=== PATIENT | female | born 1940 | race Hispanic/Latino ===

== ENCOUNTER → 2020-03-17 | Outpatient (CLI) | payer BC | LOC: CARD 07:23 | PROVIDERS: ATTEND Emergency Medicine | DX: Z12.31 Encounter for screening mammogram for malignant neoplasm of breast (principal); I83.93 Asymptomatic varicose veins of bilateral lower extremities | CPT/HCPCS: 77067; 93925 ==

== ENCOUNTER → 2025-02-03 | Outpatient (REF) | payer MEDICARE | LOC: MAMMO 08:45 | PROVIDERS: ATTEND Emergency Medicine | DX: Z12.31 Encounter for screening mammogram for malignant neoplasm of breast (principal) | CPT/HCPCS: 77067 ==